=== PATIENT | male | born 1940 | race Caucasian/White ===

== ENCOUNTER 2020-12-22 18:15 | Emergency (ER) | payer OTHER ==
[2020-12-22 18:37] VITALS: BP 108/66; PULSE 88; TEMP 98.3; BMI 22.0
[2020-12-22 19:55] LABS: BASO % 1.1 % (0-2.0); EOS % 3.8 % (0-4.5); HEMATOCRIT 34.4 % (35.4-49); HEMOGLOBIN 11.7 GM/dl (11.7-16.9); LYMPH % 18.3 % (8-40); MEAN CELL VOLUME 100.1 fl (80-96); MEAN PLT VOLUME 8.1 fl (7.5-11.1); MONO % 6.2 % (3.8-10.2); NEUT % 70.6 % (42.8-82.8); PLATELET COUNT 337 K/MM3 (134-434); RBC 3.43 M/mm3 (4.00-5.60); RDW 11.8 % (11.9-15.9); WHITE BLOOD COUNT 7.3 K/mm3 (4.0-10.8)
[2020-12-22 20:11] LABS: ALBUMIN 3.9 g/dl (3.4-5.0); BILIRUBIN,TOTAL 0.7 mg/dl (0.2-1); CALCIUM 8.9 mg/dl (8.5-10); TOT PROT 7.1 g/dl (6.4-8.2)
== END 2020-12-22 20:19 | disposition home or self-care (01) ==
LOC: FER 18:15
DX: S40.022A Contusion of left upper arm, initial encounter (principal)
CPT/HCPCS: 36415; 73060-TC-LT-FY; 80053; 85025; 99284-25

== ENCOUNTER 2022-06-25 07:22 | Day surgery (SDC) | payer OTHER ==
[2022-06-24 08:49] VITALS: BMI 21.2
[2022-06-25] MEDS ORDERED: PHENYLEPHRINE 2.5% OPHTH SOLN 15 ML BOTTLE ONE (07:29)
[2022-06-25] MEDS ORDERED: TROPICAMIDE 1% OPHTH SOLN 15 ML BOTTLE ONE (07:29)
[2022-06-25] MEDS ORDERED: CYCLOPENTOLATE HCL 1% OPHTH SOLN 2 ML BOTTLE ONE (07:29)
[2022-06-25] MEDS ORDERED: KETOROLAC TROMETHAMINE 0.5% EYE DROP 1 DROP DROPS ONE (07:29)
[2022-06-25] MEDS ORDERED: OFLOXACIN 0.3% OPHTHALMIC SOLUTION 5 ML BOTTLE ONE (07:29)
[2022-06-25] MEDS ORDERED: EPINEPHrine/PF 1 MG/1 ML (1:1,000) AMPULE ONE (07:37)
[2022-06-25] MEDS ORDERED: BACITRACIN/POLYMYXIN OPH OINT 3.5 GM TUBE ONE (07:37)
[2022-06-25] MEDS ORDERED: NEO/POLYMYX B SULF/DEXAMETH OPHTHALMIC 5ML BOTTLE ONE (07:38)
[2022-06-25] MEDS ORDERED: TETRACAINE 0.5% OPHTH SOLN 2 ML BOTTLE ONE (07:38)
[2022-06-25] MEDS ORDERED: POVIDONE-IODINE 5% OPHTHALMIC PREP 30 ML SOLUTION ONE (07:38)
[2022-06-25] MEDS ORDERED: EPI-SHUGARCAINE (EPINEPHRINE 0.025% & LIDOCAINE-PF 0.75%) 4ML ONE (07:38)
[2022-06-25] MEDS ORDERED: BETAXOLOL HCL 0.25% OPHTHALMIC 10 ML DROPSBTL ONE (07:38)
[2022-06-25] MEDS: TROPICAMIDE 1% OPHTH SOLN 15 ML BOTTLE OS SCH ×3 (08:05→08:15)
[2022-06-25] MEDS: KETOROLAC TROMETHAMINE 0.5% EYE DROP 1 DROP DROPS OS SCH ×3 (08:05→08:15)
[2022-06-25] MEDS: CYCLOPENTOLATE HCL 1% OPHTH SOLN 2 ML BOTTLE OS SCH ×3 (08:05→08:15)
[2022-06-25] MEDS: PHENYLEPHRINE 2.5% OPHTH SOLN 15 ML BOTTLE OS SCH ×3 (08:05→08:15)
[2022-06-25] MEDS: OFLOXACIN 0.3% OPHTHALMIC SOLUTION 5 ML BOTTLE OS SCH ×3 (08:05→08:15)
[2022-06-25] MEDS ORDERED: ACETAMINOPHEN 325 MG TABLET (FP) PO PRN (11:32)
[2022-06-25 11:53] VITALS: RESP 18; TEMP 97.8
[2022-06-25 12:19] VITALS: BP 121/74; PULSE 71
== END 2022-06-25 12:10 | disposition home or self-care (01) ==
LOC: FASU 07:22
PROVIDERS: ATTEND Ophthalmology
PROC: 08RK3JZ Replacement of Left Lens with Synthetic Substitute, Percutaneous Approach (ICD-10-PCS; principal; 2022-06-25 10:29)
DX: H25.89 Other age-related cataract (principal)
CPT/HCPCS: 66984; V2632

== ENCOUNTER 2024-03-13 16:03 | Observation (INO) | payer OTHER ==
[2024-03-13 17:11] LABS: HEMATOCRIT 34.1 % (35.4-49); HEMOGLOBIN 11.3 G/dL (11.7-16.9); MCH 33.7 pg (25.7-33.7); MCHC 33.1 g/dl (32.0-35.9); MEAN CELL VOLUME 101.8 fl (80-96); MEAN PLT VOLUME 8.5 fl (7.5-11.1); PLATELET COUNT 259.8 10^3/uL (134-434); RBC 3.35 10^6/uL (4.00-5.60); RDW 13.7 % (11.9-15.9); WHITE BLOOD COUNT 8.2 10^3/uL (4.0-10.8)
[2024-03-13 17:20] LABS: INR 1.05 (0.83-1.09)
[2024-03-13 17:51] LABS: PLATELET ESTIMATE ADEQUATE
[2024-03-13 17:52] LABS: ALBUMIN 3.6 g/dl (3.4-5.0); ALK PHOS 112 U/L (45-117); ANION GAP 8 mmol/L (4-13); BILIRUBIN,TOTAL 0.6 mg/dl (0.2-1); CHLORIDE 100 mmol/L (98-107); CO2 26 mmol/L (21-32); GLUCOSE,RANDOM 103 mg/dl (74-106); POTASSIUM 4.1 mmol/L (3.5-5.1); SGOT/AST 24 U/L (15-37); SGPT/ALT 16 U/L (7-52); SODIUM 134 mmol/L (136-145); TOT PROT 6.3 g/dl (6.4-8.2)
[2024-03-13 19:31] LABS: HIV INTERPRETATION NEGATIVE (NEGATIVE)
[2024-03-14 04:55] VITALS: BMI 20.2
[2024-03-14] MEDS: ATORVASTATIN CA 40 MG TABLET (FP) PO ONE (05:54)
[2024-03-14 06:50] VITALS: RESP 18
[2024-03-14 07:51] LABS: HEMATOCRIT 31.3 % (35.4-49); HEMOGLOBIN 11.1 GM/dL (11.7-16.9); MCH 34.5 pg (25.7-33.7); MCHC 35.4 g/dl (32.0-35.9); MEAN CELL VOLUME 97.5 fl (80-96); PLATELET COUNT 238 10^3/uL (134-434); RBC 3.21 M/mm3 (4.00-5.60); RDW 13.1 % (11.9-15.9); WHITE BLOOD COUNT 5.4 K/mm3 (4.0-10.0)
[2024-03-14 08:02] LABS: CALCIUM 8.4 mg/dL (8.5-10.1)
[2024-03-14 08:03] LABS: BLOOD UREA NITROGEN 15.8 mg/dL (7-18)
[2024-03-14 08:06] LABS: CREATININE 0.8 mg/dL (0.55-1.3)
[2024-03-14 08:07] LABS: PHOSPHOROUS 2.8 mg/dL (2.5-4.9)
[2024-03-14] MEDS: ENOXAPARIN NA (PORCINE) 40 MG/0.4 ML DISP.SYRIN SQ SCH (09:17)
[2024-03-14] MEDS: amLODIPine BESYLATE 5 MG TABLET (FP) PO SCH (09:17)
[2024-03-14] MEDS: LISINOPRIL 20 MG TABLET PO SCH (09:17)
[2024-03-14] MEDS: ATORVASTATIN CA 40 MG TABLET (FP) PO SCH (21:32)
[2024-03-15 07:09] LABS: HEMOGLOBIN 10.8 GM/dL (11.7-16.9); MCH 34.4 pg (25.7-33.7); MCHC 34.8 g/dl (32.0-35.9); MEAN PLT VOLUME 8.2 fl (7.5-11.1); PLATELET COUNT 241 10^3/uL (134-434); RBC 3.14 M/mm3 (4.00-5.60); RDW 12.8 % (11.9-15.9)
[2024-03-15 07:31] LABS: POTASSIUM 3.9 mmol/L (3.5-5.1)
[2024-03-15 07:36] LABS: CALCIUM 8.2 mg/dL (8.5-10.1)
[2024-03-15 07:40] LABS: CREATININE 0.6 mg/dL (0.55-1.3)
[2024-03-15 15:59] VITALS: BP 106/69; PULSE 87; TEMP 98.2
== END 2024-03-15 16:00 | disposition home or self-care (01) ==
LOC: FER 16:03 → J4W 03-14 03:09 → INTOOBSV 03-14 03:09 → UNDOADMOB 03-14 03:09 → J4W 03-14 09:29
PROVIDERS: ADMIT Internal Medicine; ATTEND Internal Medicine
PROC: 3E023GC Introduction of Other Therapeutic Substance into Muscle, Percutaneous Approach (ICD-10-PCS; principal; 2024-03-14)
DX: R55 Syncope and collapse (principal); I49.9 Cardiac arrhythmia, unspecified; D53.9 Nutritional anemia, unspecified; I10 Essential (primary) hypertension; E78.5 Hyperlipidemia, unspecified; R32 Unspecified urinary incontinence; H54.7 Unspecified visual loss; Z85.46 Personal history of malignant neoplasm of prostate; Z91.011 Allergy to milk products; Z88.2 Allergy status to sulfonamides
CPT/HCPCS: 0241U-QW; 36415; 80048; 80053; 80061; 82550; 82607; 82728; 82746; 83540; 83550; 83735; 84100; 84439; 84443; 84484; 85027; 85045; 85610; 86803; 87389; 93005; 93306-TC; 96372; 97116-GP; 97161-GP; 99285-25; G0378

== ENCOUNTER 2024-09-28 06:22 | Day surgery (SDC) | payer OTHER ==
[2024-09-22 13:25] VITALS: BMI 22.7
[2024-09-28] MEDS ORDERED: MIDAZOLAM HCL 2 MG/2 ML SINGLE DOSE VIAL ONE (07:13)
[2024-09-28] MEDS ORDERED: PROPOFOL 40 ML ONE (07:13)
[2024-09-28] MEDS ORDERED: POVIDONE-IODINE 5% OPHTHALMIC PREP 30 ML SOLUTION ONE (07:15)
[2024-09-28] MEDS ORDERED: LIDOCAINE 1%/EPI 1:100000 (20 ML MULTI DOSE VIAL) ONE (07:15)
[2024-09-28] MEDS ORDERED: ERYTHROMYCIN 0.5% OPHTHALMIC OINTMENT 3.5 GM TUBE ONE (07:15)
[2024-09-28] MEDS ORDERED: BUPIVACAINE HCL/PF 0.5% (5MG/ML) 10 ML VIAL ONE (07:15)
[2024-09-28] MEDS ORDERED: ceFAZolin SODIUM 1 GM VIAL ONE ×2 (07:15→07:56)
[2024-09-28] MEDS ORDERED: TETRACAINE 0.5% OPHTH SOLN 2 ML BOTTLE ONE (07:15)
[2024-09-28] MEDS ORDERED: ONDANSETRON 4 MG/2 ML VIAL ONE (07:56)
[2024-09-28] MEDS ORDERED: DEXAMETHASONE SOD PHOSPHATE 4 MG/1 ML VIAL ONE (07:56)
[2024-09-28] MEDS ORDERED: VASopressin 20 UNITS/ML VIAL IV ONE (08:08)
[2024-09-28] MEDS ORDERED: ONDANSETRON 4 MG/2 ML VIAL IVPUSH PRN (08:51)
[2024-09-28] MEDS ORDERED: LACTATED RINGERS SOLUTION 1,000 ML IV SCH (09:00)
[2024-09-28] MEDS: ACETAMINOPHEN 1000 MG/100 ML BAG IVPB ONE (09:09)
[2024-09-28 09:51] VITALS: TEMP 97.3
[2024-09-28 10:19] VITALS: BP 136/69; PULSE 67; RESP 18
== END 2024-09-28 10:23 | disposition home or self-care (01) ==
LOC: FASU 06:22
PROVIDERS: ATTEND Ophthalmology
PROC: 08SR0ZZ Reposition Left Lower Eyelid, Open Approach (ICD-10-PCS; principal; 2024-09-28 08:02)
DX: H02.15 Paralytic ectropion of eyelid (principal)
CPT/HCPCS: 94760; J0131